=== PATIENT | female | born 1950 | race Hispanic/Latino ===

== ENCOUNTER 2025-06-13 08:10 | Day surgery (SDC) | payer OTHER, MEDICARE ==
[~2025-06-13] VITALS: Ht 149.9 cm; Wt 47.6 kg
[2025-06-13] VITALS (11 sets, daily range): BP systolic 110–140; BP diastolic 42–59; PULSE 77–84; RESP 14–17; TEMP 97.1–98
[2025-06-13] MEDS: 0.9%NACL 1000ML 1,000 ML IV ONE (09:35)
[2025-06-13] MEDS ORDERED: PANT40TA54 PO (09:44)
[2025-06-13] MEDS ORDERED: GABA300C PO (09:44)
[2025-06-13] MEDS ORDERED: IRBE150T34 PO (09:44)
[2025-06-13] MEDS ORDERED: CEPH500C2 PO (09:44)
[2025-06-13] MEDS ORDERED: ATOR10 PO (09:44)
[2025-06-13] MEDS ORDERED: EMPA25TA PO (09:44)
[2025-06-13] MEDS ORDERED: ASPI-1005 PO (09:44)
[2025-06-13] MEDS ORDERED: SITA1TAB6 PO (09:44)
== END 2025-06-13 13:31 | disposition home or self-care (01) ==
LOC: ENDO 08:10 → DAH 08:10 → ENDO 13:31
PROVIDERS: ATTEND Internal Medicine Gastroenterology
DX: R10.10 Upper abdominal pain, unspecified (principal); K29.50 Unspecified chronic gastritis without bleeding; K20.90 Esophagitis, unspecified without bleeding; R93.3 Abnormal findings on diagnostic imaging of other parts of digestive tract; I10 Essential (primary) hypertension; E11.9 Type 2 diabetes mellitus without complications; E78.5 Hyperlipidemia, unspecified; Z90.49 Acquired absence of other specified parts of digestive tract; Z79.899 Other long term (current) drug therapy
CPT/HCPCS: 43259; 82948; 43239; J7030; J2704; A4620; A4215; J3490